=== PATIENT | female | born 1975 | race Native Hawaiian/Other Pacific Islander ===

== ENCOUNTER → 2016-06-21 17:19 | Outpatient (CLI) | payer BC | END | disposition home or self-care (01) | LOC: AMB 17:19 | DX: Z04.1 Encounter for examination and observation following transport accident (principal) ==

== ENCOUNTER 2019-01-31 10:30 | Outpatient (CLI) | payer OTHER | END 2019-01-31 20:31 | disposition home or self-care (01) | LOC: MAMMO 10:30 | DX: N63.24 Unspecified lump in the left breast, lower inner quadrant (principal) | CPT/HCPCS: G0279 ==